=== PATIENT | female | born 2000 | race Caucasian/White ===

== ENCOUNTER 2019-02-27 19:20 | Inpatient (IN) | payer OTHER ==
[2019-02-27] MEDS ORDERED: ACETAMINOPHEN 325 MG TABLET PO ONE (19:50)
--- NOTE | 2019-02-27 19:53 | ER Document Report ---
ED Medical Screen (RME) - General Chief Complaint: Abdominal Pain Stated Complaint: ABDOMINAL PAIN,PAINFUL URINATION,FAINTED Time Seen by Provider: 02/27/19 19:45 Mode of Arrival: Ambulatory Information source: Patient Notes: Patient presents emergency department with complaints of abdominal pain mainly around her umbilicus. Patient reports she woke up this morning with a little bit of abdominal pain went to the restroom when she voided she had pain burning which made her become very pale clammy she fainted and when she woke up she had blurred vision. She is unsure if she hit her head. She complains of abdominal pain still. Reports she is been able to drink and eat a brownie today. Reports she took Motrin at 3. I have greeted and performed a rapid initial assessment of this patient. A comprehensive ED assessment and evaluation of the patient, analysis of test results and completion of the medical decision making process will be conducted by additional ED providers. Dictation of this chart was performed using voice recognition software; therefore, there may be some unintended grammatical errors. TRAVEL OUTSIDE OF THE [place] IN LAST 30 DAYS: No - Related Data Allergies/Adverse Reactions: No Known Allergies Allergy (Unverified 02/27/19 19:23) Physical Exam - Vital signs Vitals: Temp Pulse Resp BP Pulse Ox 99.0 F 90 16 142/85 H 100 02/27/19 19:33 02/27/19 19:33 02/27/19 19:33 02/27/19 19:33 02/27/19 19:33 Course - Vital Signs Vital signs: Temp Pulse Resp BP Pulse Ox 99.0 F 90 16 142/85 H 100 02/27/19 19:33 02/27/19 19:33 02/27/19 19:33 02/27/19 19:33 02/27/19 19:33
[2019-02-27 20:39] LABS: ABSOLUTE LYMPHOCYTES (AUTO) 1.6 10^3/uL (0.5-4.7); ABSOLUTE MONOCYTES (AUTO) 0.9 10^3/uL (0.1-1.4); ABSOLUTE NEUT (AUTO) 13.5 10^3/uL (1.7-8.2); BASOPHILS % (AUTO) 0.3 % (0-2); HEMATOCRIT 35.4 % (36.0-47.0); HEMOGLOBIN 11.6 g/dL (12.0-15.5); MEAN CORPUSCULAR HEMOGLOBIN 27.3 pg (27.0-33.4); MEAN CORPUSCULAR HGB CONC 32.8 g/dL (32.0-36.0); MEAN CORPUSCULAR VOLUME 83 fl (80-97); MONOCYTES % (AUTO) 5.7 % (3-13); PLATELET COUNT 287 10^3/uL (150-450); RED BLOOD COUNT 4.25 10^6/uL (3.72-5.28); RED CELL DISTRIBUTION WIDTH 18.1 % (11.5-14.0); TOTAL CELLS COUNTED % (AUTO) 100 %; WHITE BLOOD COUNT 16.1 10^3/uL (4.0-10.5)
[2019-02-27 20:57] LABS: ALANINE AMINOTRANSFERASE 29 U/L (9-52); ALBUMIN 4.2 g/dL (3.5-5.0); ALKALINE PHOSPHATASE 58 U/L (38-126); ANION GAP 13 (5-19); ASPARTATE AMINO TRANSFERASE 17 U/L (14-36); BILIRUBIN,DIRECT 0.1 mg/dL (0.0-0.4); BILIRUBIN,TOTAL 0.6 mg/dL (0.2-1.3); BLOOD UREA NITROGEN 8 mg/dL (7-20); CALCIUM 9.6 mg/dL (8.4-10.2); CARBON DIOXIDE 25 mmol/L (22-30); CHLORIDE 101 mmol/L (98-107); GLUCOSE 131 mg/dL (75-110); POTASSIUM 4.2 mmol/L (3.6-5.0); SODIUM 138.5 mmol/L (137-145); TOTAL PROTEIN 6.8 g/dL (6.3-8.2)
[2019-02-27 21:01] LABS: APPEARANCE,URINE CLEAR; BILIRUBIN,URINE NEGATIVE (NEGATIVE); COLOR,URINE STRAW; GLUCOSE, URINE NEGATIVE (NEGATIVE); KETONES,URINE NEGATIVE (NEGATIVE); LEUKOCYTE ESTERASE,URINE NEGATIVE (NEGATIVE); NITRITE,URINE NEGATIVE (NEGATIVE); PROTEIN,URINE NEGATIVE (NEGATIVE); URINE SPECIFIC GRAVITY 1.005; UROBILINOGEN,URINE NEGATIVE mg/dL (<2.0)
--- NOTE | 2019-02-27 21:54 | ER Document Report ---
ED General - General Chief Complaint: Abdominal Pain Stated Complaint: ABDOMINAL PAIN,PAINFUL URINATION,FAINTED Time Seen by Provider: 02/27/19 19:45 Mode of Arrival: Ambulatory Notes: Patient is a 18-year-old female who presents the emergency department with a chief complaint of lower abdominal pain. She states that her pain is mainly midline. Describes her pain as a sharp pain. She also states that she has stin ging when she urinates. Earlier today she fainted and states that she had some cold sweats. States that she has had some blurry vision. She TRAVEL OUTSIDE OF THE [place] IN LAST 30 DAYS: No - Related Data Allergies/Adverse Reactions: No Known Allergies Allergy (Unverified 02/27/19 19:23) Past Medical History - General Information source: Patient - Social History Smoking Status: Never Smoker Chew tobacco use (# tins/day): No Frequency of alcohol use: None Drug Abuse: None Family History: Reviewed & Not Pertinent Patient has suicidal ideation: No Patient has homicidal ideation: No Renal/ Medical History: Denies: Hx Peritoneal Dialysis Review of Systems - Review of Systems Notes: REVIEW OF SYSTEMS: CONSTITUTIONAL : Denies recent illness. Denies recent unintentional weight loss. Denies fever, chills, or sweats. EENT: Denies eye, ear, throat, or mouth pain, discharge, or symptoms. Denies nasal or sinus congestion. CARDIOVASCULAR: Denies chest pain. RESPIRATORY: Denies shortness of breath, cough, congestion, difficulty breathing, or wheezing. GASTROINTESTINAL: See HPI GENITOURINARY: Denies difficulty urinating, burning, blood in urine, urgency or frequency. FEMALE GENITOURINARY: See HPI MUSCULOSKELETAL: Denies neck and back pain. Denies joint pain or swelling. SKIN: Denies rash, itchiness, or lesions HEMATOLOGIC : Denies easy bruising or bleeding. LYMPHATIC: Denies swollen, painful, enlarged glands. NEUROLOGICAL: Denies no numbness or tingling denies weakness. Denies headache. Denies altered mental status. Denies alteration in speech. PSYCHIATRIC: Denies stress, anxiety, alteration in sleep patterns, or depression. All other systems reviewed and negative. Physical Exam - Vital signs Vitals: Temp Pulse Resp BP Pulse Ox 99.0 F 90 16 142/85 H 100 02/27/19 19:33 02/27/19 19:33 02/27/19 19:33 02/27/19 19:33 02/27/19 19:33 - Notes Notes: PHYSICAL EXAMINATION: GENERAL: Appears well, healthy, well-nourished, no acute distress. HEAD: Normocephalic, atraumatic. EYES: PERRL, conjunctiva normal, all extraocular movements intact, sclera nonicteric ENT: Moist mucous membranes. NECK: Supple, no noticeable swelling, redness, rash. Normal range of motion. LUNGS: Equal breath sounds bilaterally and clear to auscultation. No wheezes rales or rhonchi. CARDIOVASCULAR: S1-S2, regular rate, regular rhythm. Radial pulses 2+, normal. ABDOMEN: Normoactive bowel sounds. Very tender mid lower abdomen. EXTREMITIES: Normal strength and range of motion, no pitting or edema. No cyanosis. NEUROLOGICAL: Moves all extremities upon command. Strength 5/5 in all extremities. PSYCH: Normal mood, normal affect. SKIN: Warm, dry. No rash, lesions, ulcerations noted. Normal skin turgor. BANK COURIER: Cervical motion tenderness noted. White and purulent drainage noted on exam. Course - Re-evaluation Re-evalutation: 02/27/19 23:30 Patient has mid low abdomen tenderness. A transvaginal ultrasound will be ordered. She also be tested for gonorrhea and chlamydia. A pelvic exam will be done. 02/27/2019 23:59 Patient has 3+ epithelial cells and 4+ bacteria noted on her wet mount. She will be given 1 g of ceftriaxone IV here in the emergency department. 02/28/19 01:23 Patient is having worsening abdominal pain. She will be sent for a CT of the abdomen pelvis, as her abdomen is more tender. She has guarding noted. 02/28/19 02:[address] [facility] and spoke to her personally and there is free fluid and she is ruling out appendicitis and a bowel perforation. She states that it may be from mild left ruptured ovarian cyst. I will call Dr. Gary, the [employer] ANALYST on-call. 02/28/19 02:[address] Gary and updated him on the free fluid that was in the patient's abdomen and he states to call him back with the ultrasound results. 02/28/19 04:13 The patient's ultrasound shows a 7.2 cm heterogeneous complex collection lesion without significant vascularity of the left broad ligament. I discussed these findings with Dr. Gary, the [employer] ANALYST on-call. He states that he will admit her for PID and IV antibiotic treatment. Patient states that she is still in pain. She will receive another dose of fentanyl. - Vital Signs Vital signs: Temp Pulse Resp BP Pulse Ox 98 F 68 16 141/76 H 98 02/28/19 07:03 02/28/19 07:03 02/28/19 07:03 02/28/19 07:03 02/28/19 07:03 - Laboratory Result Diagrams: 02/28/19 03:18 02/27/19 20:08 Laboratory results interpreted by me: 02/27/19 02/27/19 02/28/19 20:08 20:08 03:18 WBC 16.1 H 11.0 H Hgb 11.6 L 11.0 L Hct 35.4 L 33.5 L RDW 18.1 H 17.5 H Seg Neutrophils % 84.0 H Lymphocytes % 10.0 L Absolute Neutrophils 13.5 H 8.4 H Glucose 131 H Discharge - Discharge Clinical Impression: Pelvic inflammatory disease Condition: Fair Disposition: ADMITTED INPATIENT Admitting Provider: [facility] Unit Admitted: Medical Floor
[2019-02-27] MEDS ORDERED: KETOROLAC TROMETHAMINE 60 MG/2 ML SDV IM ONE (21:55)
[2019-02-27] MEDS ORDERED: MORPHINE SULFATE 10 MG/ML INJ IV ONE (23:35)
[2019-02-27 23:55] LABS: BACTERIA (WET MOUNT) 4+ BACTERIA SEEN; EPITHELIALS (WET MOUNT) 3+ EPITHELIALS SEEN; RBCS (WET MOUNT) NO RBCS SEEN; T.VAGINALIS (WET MOUNT) NO TRICHOMONAS SEEN; WBCS (WET MOUNT) 1+ WBCS SEEN; YEAST (WET MOUNT) NO YEAST SEEN
[2019-02-28] MEDS ORDERED: CEFTRIAXONE 1 GM/D5W RTU 1 GM/50 ML RTUPB IV ONE
[2019-02-28] MEDS ORDERED: MORPHINE SULFATE 10 MG/ML INJ IV ONE (00:54)
[2019-02-28 01:19] LABS: CHLAM PCR NOT DETECTED (NOT DETECT); GON PCR NOT DETECTED (NOT DETECT)
[2019-02-28] MEDS ORDERED: FENTANYL CITRATE INJ/PF 100 MCG/2 ML AMPUL IV ONE ×2 (01:24→04:10)
--- NOTE | 2019-02-28 02:51 | RADIOLOGY REPORT (SQ) ---
EXAM: CT abdomen and pelvis with IV contrast CLINICAL DATA: 18-year-old female with worsening abdominal pain TECHNICAL DATA: Axial CT imaging of the abdomen and pelvis was performed following the administration of intravenous contrast.. Sagittal and coronal reconstructed images were then performed. The CT study is performed according to ALARA (as low as reasonably achievable) or ALARA/IMAGE GENTLY, with automatic adjustment of mA and/or kV according to patient size. Performed on: 02/28/2019 at 1:28 AM. Comparison: None FINDINGS: Lung bases: The lung bases are clear. Liver:The liver is normal in size and configuration. No focal hepatic abnormalities are identified. Liver attenuation is within normal limits. Spleen:The spleen is normal is size, configuration and attenuation. Gallbladder and bile duct: The gallbladder is well distended and unremarkable. There is no biliary ductal dilatation. Pancreas: The pancreas is grossly normal in size and configuration. Adrenal Glands:The adrenal glands are normal in size and configuration. Kidneys:The kidneys are normal in size and configuration. There is no evidence of hydronephrosis. There is no evidence of nephrolithiasis. No definite solid or cystic renal mass lesions are identified. Stomach:The stomach is grossly normal. There is no definite hiatal hernia. Bowel:The bowel gas pattern is non specific and non obstructive. Appendix: The appendix is normal. Free air:There is no evidence of free air. Free fluid: There is a [id number] amount of low-density ascites of uncertain etiology. Findings could potentially be due to rupture of an ovarian cyst. Hounsfield measurements average approximately 35 suggesting possible infectious etiology. Vasculature: The aorta is normal in caliber and contour. The inferior vena cava is grossly unremarkable. Lymphadenopathy: No pathologic lymphadenopathy is identified. Bladder: The bladder is well distended and smooth in contour. Reproductive: The uterus is grossly within normal limits. Bones: No acute osseous abnormalities are identified. Soft tissues: No focal soft tissue abnormalities are identified. IMPRESSION: 1. Small to moderate amount of ascites with an average Hounsfield measurement of approximately 35. Although findings could be related to ruptured ovarian cyst, other etiologies are not excluded. Bowel perforation is a consideration although there is no evidence of free intraperitoneal air. These findings were discussed with the nurse practitioner on 02/28/2019 at approximately 1:40 AM central time. 2. Otherwise, unremarkable CT scan of the abdomen and pelvis.
[2019-02-28 03:28] LABS: ABSOLUTE BASOPHILS # (AUTO) 0.1 10^3/uL (0.0-0.2); ABSOLUTE LYMPHOCYTES (AUTO) 1.7 10^3/uL (0.5-4.7); ABSOLUTE MONOCYTES (AUTO) 0.8 10^3/uL (0.1-1.4); ABSOLUTE NEUT (AUTO) 8.4 10^3/uL (1.7-8.2); BASOPHILS % (AUTO) 0.6 % (0-2); EOSINOPHILS % (AUTO) 0.2 % (0-6); HEMATOCRIT 33.5 % (36.0-47.0); LYMPHOCYTES % (AUTO) 15.7 % (13-45); MEAN CORPUSCULAR HEMOGLOBIN 27.6 pg (27.0-33.4); MEAN CORPUSCULAR VOLUME 84 fl (80-97); MONOCYTES % (AUTO) 6.9 % (3-13); PLATELET COUNT 235 10^3/uL (150-450); RED CELL DISTRIBUTION WIDTH 17.5 % (11.5-14.0); SEGMENTED NEUTROPHILS % (AUTO) 76.6 % (42-78); TOTAL CELLS COUNTED % (AUTO) 100 %
--- NOTE | 2019-02-28 03:54 | RADIOLOGY REPORT (SQ) ---
EXAM DESCRIPTION: US TRANSVAGINAL COMPLETED DATE/TME: 02/27/2019 22:01 CLINICAL HISTORY: 18 years Female, pelvic pain Comparison: CT, concurrent. Technique: Transvaginal. LIMITATIONS: Unable to empty bladder. FINDINGS: 5.8 x 2.4 x 7.2 cm heterogeneous complex collection-lesion without significant vascularity at the expected left broad ligament. 9 cm uterus, 1.5 cm thick endometrial stripe, 2.9 cm right ovary, 5.4 cm left ovary, 2.1 cm complex possible hemorrhagic cyst of the left ovary appear otherwise normal size, shape, echotexture, and vascularity. IMPRESSION: 7.2 cm heterogeneous complex collection-lesion without significant vascularity at the expected left broad ligament. Differential etiologies include phlegmon-pyosalpinx (PID), hemoatoma, endometrioma, and neoplasm.
[2019-02-28] MEDS ORDERED: PROMETHAZINE HCL INJ 25 MG/1 ML VIAL ONE (07:14)
[2019-02-28] MEDS ORDERED: OXYCODONE-ACETAMINOPHEN 5-325 MG TABLET PO PRN ×2 (08:26→08:42)
[2019-02-28] MEDS ORDERED: PROMETHAZINE HCL INJ 25 MG/1 ML VIAL IV PRN (08:27)
[2019-02-28] MEDS ORDERED: ONDANSETRON HCL INJ/PF 4 MG/2 ML SDV IV PRN (08:28)
[2019-02-28] MEDS: CEFTRIAXONE SODIUM 1,000 MG in DEXTROSE 5%-WATER 50 ML IV SCH ×2 (10:29→23:09)
[2019-02-28] MEDS: DEXTROSE 5%-LACTATED RINGERS 1,000 ML IV PRN ×2 (10:30→17:49)
[2019-02-28 11:15] LABS: CARCINOEMBRYONIC ANTIGEN 1.6 ng/mL (<3.0)
[2019-02-28] MEDS: IBUPROFEN 800 MG TABLET PO SCH ×2 (13:11→21:56)
[2019-02-28] MEDS: CLINDAMYCIN 900 MG/D5W RTU 900 MG/50 ML RTUPB IV SCH ×2 (13:11→21:57)
--- NOTE | 2019-02-28 15:09 | PDOC H&P ---
History of Present Illness Admission Date/PCP: 02/28/19 05:48 Patient complains of: abdominal pain and bloating, difficulty urinating History of Present Illness: KENNY DONG is a 18 year old female with reported abdominal pain for a couple of days. She reports syncope last evening and some right shoulder pain since that time. She also reports that since yesterday she has been having difficulty voiding. Denies dysuria/frequency. She reports feeling abdominal bloating since last night and midline pelvic pain. Denies fevers, but reports having the sweats. She has never had anything like this before. LMP was 01/29/2019. She reports she ahs pretty regular menses. She denies any other concerns at this time. Past Medical History LMP: 01/29/2019 Gynecological Infection: No Psychiatric Medical History: Denies: Depression Past Surgical History Past Surgical History: Reports: None Social History Information Source: Patient Lives with: Family Smoking Status: Never Smoker Frequency of Alcohol Use: None Hx Recreational Drug Use: No Drugs: None Hx Prescription Drug Abuse: No - Advance Directive Resuscitation Status: Full Code Family History Family History: Reviewed & Not Pertinent Parental Family History Reviewed: No Children Family History Reviewed: NA Sibling(s) Family History Reviewed.: NA Medication/Allergy Home Medications: No Home Medications 02/28/19 Allergies/Adverse Reactions: No Known Allergies Allergy (Unverified 02/27/19 19:23) Review of Systems Constitutional: PRESENT: as per HPI, chills, fatigue, night sweats. ABSENT: fever(s), weight gain, weight loss Gastrointestinal: PRESENT: abdominal pain, bloating. ABSENT: constipation, diarrhea, hematemesis, hematochezia, nausea, vomiting Genitourinary: PRESENT: difficulty urinating. ABSENT: dysuria, hematuria, nocturia Musculoskeletal: ABSENT: joint swelling Integumentary: ABSENT: rash, wounds Neurological: ABSENT: abnormal gait, abnormal speech, confusion, dizziness, focal weakness, syncope Psychiatric: ABSENT: anxiety, depression, homidical ideation, suicidal ideation Endocrine: ABSENT: cold intolerance, heat intolerance, polydipsia, polyuria Physical Exam - Physical Exam Vital Signs: Temp Pulse Resp BP Pulse Ox 98.4 F 72 18 128/61 H 99 02/28/19 11:03 02/28/19 11:03 02/28/19 11:03 02/28/19 11:03 02/28/19 11:03 Intake & Output 02/27/19 02/28/19 03/01/19 06:59 06:59 06:59 Intake Total 50 Balance 50 Weight 58.1 kg General appearance: PRESENT: no acute distress, well-developed, well-nourished Head exam: PRESENT: atraumatic, normocephalic Respiratory exam: PRESENT: clear to auscultation enrique, symmetrical, unlabored Cardiovascular exam: PRESENT: RRR. ABSENT: diastolic murmur, rubs, systolic murmur Vascular exam: PRESENT: normal capillary refill GI/Abdominal exam: PRESENT: ascites Rectal exam: PRESENT: deferred Extremities exam: PRESENT: full ROM. ABSENT: calf tenderness, clubbing, pedal edema Neurological exam: PRESENT: alert, awake, oriented to person, oriented to place, oriented to time, oriented to situation, CN II-XII grossly intact. ABSENT: motor sensory deficit Psychiatric exam: PRESENT: appropriate affect, normal mood. ABSENT: homicidal ideation, suicidal ideation Skin exam: PRESENT: dry, intact, warm. ABSENT: cyanosis, rash Result Laboratory Results: 02/28/19 03:18 02/27/19 20:08 02/27/19 02/27/19 02/27/19 20:08 20:08 20:10 WBC 16.1 H RBC 4.25 Hgb 11.6 L Hct 35.4 L MCV 83 MCH 27.3 MCHC 32.8 RDW 18.1 H Plt Count 287 Seg Neutrophils % 84.0 H Lymphocytes % 10.0 L Monocytes % 5.7 Eosinophils % 0.0 Basophils % 0.3 Absolute Neutrophils 13.5 H Absolute Lymphocytes 1.6 Absolute Monocytes 0.9 Absolute Eosinophils 0.0 Absolute Basophils 0.0 Sodium 138.5 Potassium 4.2 Chloride 101 Carbon Dioxide 25 Anion Gap 13 BUN 8 Creatinine 0.65 Est GFR ( Amer) > 60 Est GFR (Non-Af Amer) > 60 Glucose 131 H Calcium 9.6 Total Bilirubin 0.6 AST 17 ALT 29 Alkaline Phosphatase 58 Total Protein 6.8 Albumin 4.2 Urine Color STRAW Urine Appearance CLEAR Urine pH 6.0 Ur Specific [place] 1.005 Urine Protein NEGATIVE Urine Glucose (UA) NEGATIVE Urine Ketones NEGATIVE Urine Blood NEGATIVE Urine Nitrite NEGATIVE Ur Leukocyte Esterase NEGATIVE Urine WBC (Auto) 1 Urine RBC (Auto) 0 02/28/19 03:18 WBC 11.0 H RBC 4.00 Hgb 11.0 L Hct 33.5 L MCV 84 MCH 27.6 MCHC 33.0 RDW 17.5 H Plt Count 235 Seg Neutrophils % 76.6 Lymphocytes % 15.7 Monocytes % 6.9 Eosinophils % 0.2 Basophils % 0.6 Absolute Neutrophils 8.4 H Absolute Lymphocytes 1.7 Absolute Monocytes 0.8 Absolute Eosinophils 0.0 Absolute Basophils 0.1 Sodium Potassium Chloride Carbon Dioxide Anion Gap BUN Creatinine Est GFR ( Amer) Est GFR (Non-Af Amer) Glucose Calcium Total Bilirubin AST ALT Alkaline Phosphatase Total Protein Albumin Urine Color Urine Appearance Urine pH Ur Specific [place] Urine Protein Urine Glucose (UA) Urine Ketones Urine Blood Urine Nitrite Ur Leukocyte Esterase Urine WBC (Auto) Urine RBC (Auto) Impressions: Transvaginal US 02/27/19 22:01 IMPRESSION: 7.2 cm heterogeneous complex collection-lesion without significant vascularity at the expected left broad ligament. Differential etiologies include phlegmon-pyosalpinx (PID), hemoatoma, endometrioma, and neoplasm. Abdomen/Pelvis CT 02/28/19 01:23 IMPRESSION: 1. Small to moderate amount of ascites with an average Hounsfield measurement of approximately 35. Although findings could be related to ruptured ovarian cyst, other etiologies are not excluded. Bowel perforation is a consideration although there is no evidence of free intraperitoneal air. These findings were discussed with the nurse practitioner on 02/28/2019 at approximately 1:40 AM central time. 2. Otherwise, unremarkable CT scan of the abdomen and pelvis. Status: Imported from PACS Assessment & Plan - Diagnosis (1) Pelvic inflammatory disease Is this a current diagnosis for this admission?: Yes Plan: GC/CT negative, Trich negative. Reviewed that ascites noted and need for drainage with studies. Will continue to treat for PID at this time. Repeat labs in am. (2) Ascites Qualifiers: Ascites type: other type Qualified Code(s): R18.8 - Other ascites Is this a current diagnosis for this admission?: Yes Plan: Tumor markers negative, Inhibin is still pending. Reviewed studies with radiology and US guided drainage of Ascites - but no good window so will delay until in the am and radioloyg will perform under CT guidance. Gram stain and culture ordered of fluid. Cytology ordered of fluid. (3) Urinary retention Is this a current diagnosis for this admission?: Yes Plan: Bladder scan with greater than 500ml in bladder. Jeter to gravity placed with staggered drainage to prevent symptoms. Will leave jeter to gravity in place overnight to maintain bladder emptying in order to complete drainage procedure in am. - Time Time Spent: 50 to 70 Minutes Critical Time spent with patient: Less than 15 minutes Medications reviewed and adjusted accordingly: Yes Anticipated discharge: Home Within: within 48 hours - Inpatient Certification Based on my medical assessment, after consideration of the patient's comorbidities, presenting symptoms, or acuity I expect that the services needed warrant INPATIENT care.: Yes I certify that my determination is in accordance with my understanding of Medicare's requirements for reasonable and necessary INPATIENT services [42 CFR 412.3e].: Yes Medical Necessity: Need For IV Fluids, Need for IV Antibiotics Post Hospital Care: D/C Plaster Foreman Documentation
[2019-02-28 15:39] LABS: APPEARANCE,URINE CLEAR; BILIRUBIN,URINE NEGATIVE (NEGATIVE); COLOR,URINE YELLOW; GLUCOSE, URINE NEGATIVE (NEGATIVE); KETONES,URINE NEGATIVE (NEGATIVE); LEUKOCYTE ESTERASE,URINE NEGATIVE (NEGATIVE); NITRITE,URINE NEGATIVE (NEGATIVE); PROTEIN,URINE NEGATIVE (NEGATIVE); URINE SPECIFIC GRAVITY 1.011; UROBILINOGEN,URINE NEGATIVE mg/dL (<2.0)
--- NOTE | 2019-02-28 16:31 | RADIOLOGY REPORT (SQ) ---
EXAM DESCRIPTION: U/S ABDOMEN LIMITED W/O DOP COMPLETED DATE/TIME: 02/28/2019 4:21 pm REASON FOR STUDY: ascites of uknown origin COMPARISON: None. TECHNIQUE: Limited Static and real time corral scale imaging performed of the 4 abdominal quadrants an d the midline. LIMITATIONS: None. FINDINGS: ASCITES: Small amount of ascites. No safe window for paracentesis under ultrasound guidan ce. OTHER: No other significant finding. IMPRESSION: No safe window for ultrasound guidance. Patient will be scheduled for CT guided diagnos tic paracentesis. TECHNICAL DOCUMENTATION: JOB ID: [id number] [employer]- All Rights Reserved Reading location - IP/workstation name: [email or web address]
[2019-03-01] MEDS: IBUPROFEN 800 MG TABLET PO SCH ×3 (06:09→22:40)
[2019-03-01] MEDS: DEXTROSE 5%-LACTATED RINGERS 1,000 ML IV PRN ×2 (06:09→16:29)
[2019-03-01] MEDS: CLINDAMYCIN 900 MG/D5W RTU 900 MG/50 ML RTUPB IV SCH ×3 (06:09→22:40)
[2019-03-01] MEDS: CEFTRIAXONE SODIUM 1,000 MG in DEXTROSE 5%-WATER 50 ML IV SCH ×2 (09:31→23:54)
--- NOTE | 2019-03-01 13:42 | RADIOLOGY REPORT (SQ) ---
EXAM DESCRIPTION: CT ABDOMEN NO ORAL OR IV COMPLETED DATE/TIME: 03/01/2019 1:31 pm REASON FOR STUDY: ASCITES COMPARISON: CT and ultrasound dated 02/28/2019. TECHNIQUE: Limited axial images of the right side of the abdomen were acquired without contrast as s cout imaging for planned paracentesis. All images stored on PACS. All CT scanners at this facility use dose modulation, iterative reconstruction, and/or weight based d osing when appropriate to reduce radiation dose to as low as reasonably achievable (ALARA). [facility]: Dose Right [facility]: CareDose [facility]: Dose Right [facility]: Teradose 4D [facility]: MedDay RADIATION DOSE: CT Rad equipment meets quality standard of care and radiation dose reduction techniq ues were employed. CTDIvol: 5.9 mGy. DLP: 169 mGy-cm.mGy. LIMITATIONS: None. FINDINGS: The previously seen free fluid in the right subhepatic space and right pericolic gutter is no longer present. Visualized organs and bowel are unremarkable. IMPRESSION: PREVIOUSLY SEEN FREE FLUID ON THE RIGHT SIDE OF THE ABDOMEN IS NO LONGER PRESENT. THE PLANNED PARACENTESIS WAS CANCELED. TECHNICAL DOCUMENTATION: JOB ID: [id number] Quality ID # [id number]: Final reports with documentation of one or more dose reduction techniques (e.g., Au tomated exposure control, adjustment of the mA and/or kV according to patient size, use of iterative reconstruction technique) 2010 [employer]- All Rights Reserved Reading location - IP/workstation name: [email or web address]
--- NOTE | 2019-03-01 17:13 | PDOC PROGRESS REPORT ---
Subjective Progress Note for:: 03/01/19 Subjective:: pt went for CT guided paracentesis today and ascites/collection is resolved. Pt returnd to her patient room and began c/o headache and stomach pain. Denies nausea or vomiting at this time but pt and family indicate that pt's stomach pain worsened after eating. Fever noted to be over 101.9 x 3 checks since headache started. Reason For Visit: PELVIC MASS WITH INFLAMMATION Physical Exam - Physical Exam Vital Signs: Temp Pulse Resp BP Pulse Ox 103.0 F H 102 H 16 143/83 H 100 03/01/19 15:11 03/01/19 15:11 03/01/19 15:11 03/01/19 15:11 03/01/19 15:11 Intake & Output 02/28/19 03/01/19 03/02/19 06:59 06:59 06:59 Intake Total 50 3160 1370 Output Total 1790 1800 Balance 50 1370 -430 Weight 58.1 kg 58.7 kg General appearance: PRESENT: no acute distress, cooperative, mild distress, thin Head exam: PRESENT: atraumatic, normocephalic Neck exam: PRESENT: full ROM, meningismus GI/Abdominal exam: PRESENT: soft, tenderness - mildly tender on the right Neurological exam: PRESENT: alert, awake, oriented to person, oriented to place, CN II-XII grossly intact Additional comments: no CVA tenderness with palpation. No further menigeal signs other than with neck flexion. (feels improved with neck extension) Denies photophobia Result Laboratory Results: 02/28/19 03:18 02/27/19 20:08 Impressions: Transvaginal US 02/27/19 22:01 IMPRESSION: 7.2 cm heterogeneous complex collection-lesion without significant vascularity at the expected left broad ligament. Differential etiologies include phlegmon-pyosalpinx (PID), hemoatoma, endometrioma, and neoplasm. Abdomen/Pelvis CT 02/28/19 01:23 IMPRESSION: 1. Small to moderate amount of ascites with an average Hounsfield measurement of approximately 35. Although findings could be related to ruptured ovarian cyst, other etiologies are not excluded. Bowel perforation is a consideration although there is no evidence of free intraperitoneal air. These findings were discussed with the nurse practitioner on 02/28/2019 at approximately 1:40 AM central time. 2. Otherwise, unremarkable CT scan of the abdomen and pelvis. Abdomen Ultrasound 02/28/19 15:05 IMPRESSION: No safe window for ultrasound guidance. Patient will be scheduled for CT guided diagnostic paracentesis. Abdomen CT 03/01/19 00:00 IMPRESSION: PREVIOUSLY SEEN FREE FLUID ON THE RIGHT SIDE OF THE ABDOMEN IS NO LONGER PRESENT. THE PLANNED PARACENTESIS WAS CANCELED. Assessment & Plan - Diagnosis (2) Ascites Qualifiers: Ascites type: other type Qualified Code(s): R18.8 - Other ascites Is this a current diagnosis for this admission?: Yes (3) Pelvic inflammatory disease Is this a current diagnosis for this admission?: Yes (4) Urinary retention Is this a current diagnosis for this admission?: Yes - Time Time Spent with patient: 15-24 minutes Anticipated discharge: Home Within: within 24 hours - Inpatient Certification Based on my medical assessment, after consideration of the patient's comorbidities, presenting symptoms, or acuity I expect that the services needed warrant INPATIENT care.: Yes I certify that my determination is in accordance with my understanding of Medicare's requirements for reasonable and necessary INPATIENT services [42 CFR 412.3e].: Yes Medical Necessity: Need For IV Fluids, Need for Pain Control, Need for IV Antibiotics - Plan Summary Plan Summary: will check cbc and blood cultures. will d/c jeter and await voiding now that adequate bladder rest. (explained to pt and family that we can replace jeter if unable to void in 6 hours) Hospitalist consulted to rule out meningitis although this is unlikely and to evaluate fever. Feel that fever is likely inflammatory response and should resolve however, welcome hospitalist input for other possible etiologies. Plan discharge when able to maintain afebrile state for greater than 24 hours.
[2019-03-01 17:33] LABS: APPEARANCE,URINE CLEAR; BILIRUBIN,URINE NEGATIVE (NEGATIVE); COLOR,URINE STRAW; GLUCOSE, URINE NEGATIVE (NEGATIVE); KETONES,URINE NEGATIVE (NEGATIVE); LEUKOCYTE ESTERASE,URINE NEGATIVE (NEGATIVE); NITRITE,URINE NEGATIVE (NEGATIVE); PROTEIN,URINE NEGATIVE (NEGATIVE); URINE SPECIFIC GRAVITY 1.005; UROBILINOGEN,URINE NEGATIVE mg/dL (<2.0)
[2019-03-01 18:37] LABS: ABSOLUTE LYMPHOCYTES (AUTO) 0.6 10^3/uL (0.5-4.7); ABSOLUTE MONOCYTES (AUTO) 0.4 10^3/uL (0.1-1.4); ABSOLUTE NEUT (AUTO) 4.9 10^3/uL (1.7-8.2); BASOPHILS % (AUTO) 0.7 % (0-2); HEMATOCRIT 34.2 % (36.0-47.0); HEMOGLOBIN 11.4 g/dL (12.0-15.5); LYMPHOCYTES % (AUTO) 9.4 % (13-45); MEAN CORPUSCULAR HEMOGLOBIN 27.7 pg (27.0-33.4); MEAN CORPUSCULAR HGB CONC 33.2 g/dL (32.0-36.0); MEAN CORPUSCULAR VOLUME 84 fl (80-97); MONOCYTES % (AUTO) 6.4 % (3-13); PLATELET COUNT 202 10^3/uL (150-450); RED CELL DISTRIBUTION WIDTH 17.4 % (11.5-14.0); SEGMENTED NEUTROPHILS % (AUTO) 83.5 % (42-78); TOTAL CELLS COUNTED % (AUTO) 100 %; WHITE BLOOD COUNT 5.9 10^3/uL (4.0-10.5)
--- NOTE | 2019-03-01 19:40 | PDOC CONSULTATION ---
Consultation Consult Date: 03/01/19 Attending physician:: MONICA DEGROOT Provider Consulted: NIRU ELDER Consult reason:: fever and headache History of Present Illness Admission Date/PCP: 02/28/19 05:48 History of Present Illness: KENNY DONG is a 18 year old female who was admitted due to abdominal pain and was diagnosed with PID and left broad ligament abscess. she had small free intra-abdominal fluid that is now resolved. she is on Ceftriaxone and cli ndamycin. she developed mild to moderate headache and high fever today. she doesn't have photophobia, no nuchal rigidity. she vomited once yesterday bit not today. she has shoulder pain but it was from recent fall. she is actually improving. headache is better. Past Medical History Psychiatric Medical History: Denies: Depression Past Surgical History Past Surgical History: Reports: None Social History Lives with: Family Smoking Status: Never Smoker Frequency of Alcohol Use: None Hx Recreational Drug Use: No Drugs: None Hx Prescription Drug Abuse: No - Advance Directive Resuscitation Status: Full Code Family History Family History: Reviewed & Not Pertinent Parental Family History Reviewed: Yes Children Family History Reviewed: Yes Sibling(s) Family History Reviewed.: Yes Medication/Allergy Home Medications: No Home Medications 02/28/19 Allergies/Adverse Reactions: No Known Allergies Allergy (Unverified 02/27/19 19:23) Review of Systems All systems: reviewed and no additional remarkable complaints except as stated Physical Exam Vital Signs: Temp Pulse Resp BP Pulse Ox 103.0 F H 102 H 16 143/83 H 100 03/01/19 15:11 03/01/19 15:11 03/01/19 15:11 03/01/19 15:11 03/01/19 15:11 Intake & Output 02/28/19 03/01/19 03/02/19 06:59 06:59 06:59 Intake Total 50 3160 1370 Output Total 1790 1800 Balance 50 1370 -430 Weight 128 lb 1.417 oz 129 lb 6.581 oz Exam: Patient is no acute distress Alert oriented to time place person No anxiety or depression Head: atraumatic normocephalic Pupils: are equal reactive Neck: is supple and trachea is central no lymphadenopathy No pharyngeal erythema or exudates Heart: Regular rate and rhythm Lungs: clear no distress Abdomen: nontender nondistended Neurological exam: unremarkable. no photophobia. no nuchal rigidity. Musculoskeletal: No joint swelling or effusion chronic lower back pain and tenderness No suicidal or homicidal ideation Results Laboratory Results: 03/01/19 18:21 02/27/19 20:08 03/01/19 03/01/19 17:10 18:21 WBC 5.9 RBC 4.10 Hgb 11.4 L Hct 34.2 L MCV 84 MCH 27.7 MCHC 33.2 RDW 17.4 H Plt Count 202 Seg Neutrophils % 83.5 H Lymphocytes % 9.4 L Monocytes % 6.4 Eosinophils % 0.0 Basophils % 0.7 Absolute Neutrophils 4.9 Absolute Lymphocytes 0.6 Absolute Monocytes 0.4 Absolute Eosinophils 0.0 Absolute Basophils 0.0 Urine Color STRAW Urine Appearance CLEAR Urine pH 9.0 Ur Specific [place] 1.005 Urine Protein NEGATIVE Urine Glucose (UA) NEGATIVE Urine Ketones NEGATIVE Urine Blood NEGATIVE Urine Nitrite NEGATIVE Ur Leukocyte Esterase NEGATIVE Urine RBC (Auto) 1 Impressions: Transvaginal US 02/27/19 22:01 IMPRESSION: 7.2 cm heterogeneous complex collection-lesion without significant vascularity at the expected left broad ligament. Differential etiologies include phlegmon-pyosalpinx (PID), hemoatoma, endometrioma, and neoplasm. Abdomen/Pelvis CT 02/28/19 01:23 IMPRESSION: 1. Small to moderate amount of ascites with an average Hounsfield measurement of approximately 35. Although findings could be related to ruptured ovarian cyst, other etiologies are not excluded. Bowel perforation is a consideration although there is no evidence of free intraperitoneal air. These findings were discussed with the nurse practitioner on 02/28/2019 at approximately 1:40 AM central time. 2. Otherwise, unremarkable CT scan of the abdomen and pelvis. Abdomen Ultrasound 02/28/19 15:05 IMPRESSION: No safe window for ultrasound guidance. Patient will be scheduled for CT guided diagnostic paracentesis. Abdomen CT 03/01/19 00:00 IMPRESSION: PREVIOUSLY SEEN FREE FLUID ON THE RIGHT SIDE OF THE ABDOMEN IS NO LONGER PRESENT. THE PLANNED PARACENTESIS WAS CANCELED. Assessment and Plan - Diagnosis (1) Headache Is this a current diagnosis for this admission?: Yes Plan: headache is improving. recommend treating symptomatically (2) Ascites Qualifiers: Ascites type: other type Qualified Code(s): R18.8 - Other ascites Is this a current diagnosis for this admission?: Yes Plan: resolved with repeat CT (3) Fever and other physiologic disturbances of temperature regulation Is this a current diagnosis for this admission?: Yes Plan: most likely due to PID. follow blood cultures. continue clindamycin and ceftriaxone (4) Pelvic inflammatory disease Is this a current diagnosis for this admission?: Yes Plan: continue abx - Plan Summary Plan Summary: discussed with patient and her family including parents at bedside. low suspicion of meningitis since there is no photophobia nor nuchal rigidity. no nausea or vomiting. headache is improving. fever is most likely from PID. continue with current abx. if symptoms worsen or persisted, will do LP. patient and family agree. apparently, the father spoke with his brother in-law who is ER physician and he also recommended the same to the family. Thank you Dr Degroot for the consult. will follow with you.
[2019-03-01] MEDS ORDERED: ACETAMINOPHEN 325 MG TABLET PO PRN (20:08)
[2019-03-02] MEDS: CLINDAMYCIN 900 MG/D5W RTU 900 MG/50 ML RTUPB IV SCH ×3 (05:53→22:48)
[2019-03-02] MEDS: IBUPROFEN 800 MG TABLET PO SCH ×3 (05:53→23:00)
[2019-03-02 09:31] LABS: INHIBIN B 41.8 pg/mL (.)
--- NOTE | 2019-03-02 13:20 | PDOC PROGRESS REPORT ---
Subjective Progress Note for:: 03/02/19 Subjective:: Patient is doing much better. She is afebrile. Headache has resolved. White count normalized. Tolerating diet very well. Reason For Visit: PELVIC MASS WITH INFLAMMATION Physical Exam Vital Signs: Temp Pulse Resp BP Pulse Ox 98.4 F 67 16 125/66 99 03/02/19 11:29 03/02/19 11:29 03/02/19 11:29 03/02/19 11:29 03/02/19 11:29 Intake & Output 03/01/19 03/02/19 03/03/19 06:59 06:59 06:59 Intake Total 3160 2198 820 Output Total 1790 2050 Balance 1370 148 820 Weight 129 lb 6.581 oz 128 lb 15.527 oz Exam: Patient is no acute distress Alert oriented to time place person No anxiety or depression Head: atraumatic normocephalic Pupils: are equal reactive Neck: is supple and trachea is central no lymphadenopathy No pharyngeal erythema or exudates Heart: Regular rate and rhythm Lungs: clear no distress Abdomen: nontender nondistended Neurological exam: unremarkable. no photophobia. no nuchal rigidity. Musculoskeletal: No joint swelling or effusion chronic lower back pain and tenderness No suicidal or homicidal ideation Results Laboratory Results: 03/01/19 18:21 02/27/19 20:08 03/01/19 03/01/19 17:10 18:21 WBC 5.9 RBC 4.10 Hgb 11.4 L Hct 34.2 L MCV 84 MCH 27.7 MCHC 33.2 RDW 17.4 H Plt Count 202 Seg Neutrophils % 83.5 H Lymphocytes % 9.4 L Monocytes % 6.4 Eosinophils % 0.0 Basophils % 0.7 Absolute Neutrophils 4.9 Absolute Lymphocytes 0.6 Absolute Monocytes 0.4 Absolute Eosinophils 0.0 Absolute Basophils 0.0 Urine Color STRAW Urine Appearance CLEAR Urine pH 9.0 Ur Specific [place] 1.005 Urine Protein NEGATIVE Urine Glucose (UA) NEGATIVE Urine Ketones NEGATIVE Urine Blood NEGATIVE Urine Nitrite NEGATIVE Ur Leukocyte Esterase NEGATIVE Urine RBC (Auto) 1 02/28/19 15:10 Catheterized Urine Urine Culture - Final NO GROWTH 2 DAYS Impressions: Transvaginal US 02/27/19 22:01 IMPRESSION: 7.2 cm heterogeneous complex collection-lesion without significant vascularity at the expected left broad ligament. Differential etiologies include phlegmon-pyosalpinx (PID), hemoatoma, endometrioma, and neoplasm. Abdomen/Pelvis CT 02/28/19 01:23 IMPRESSION: 1. Small to moderate amount of ascites with an average Hounsfield measurement of approximately 35. Although findings could be related to ruptured ovarian cyst, other etiologies are not excluded. Bowel perforation is a consideration although there is no evidence of free intraperitoneal air. These findings were discussed with the nurse practitioner on 02/28/2019 at approximately 1:40 AM central time. 2. Otherwise, unremarkable CT scan of the abdomen and pelvis. Abdomen Ultrasound 02/28/19 15:05 IMPRESSION: No safe window for ultrasound guidance. Patient will be scheduled for CT guided diagnostic paracentesis. Abdomen CT 03/01/19 00:00 IMPRESSION: PREVIOUSLY SEEN FREE FLUID ON THE RIGHT SIDE OF THE ABDOMEN IS NO LONGER PRESENT. THE PLANNED PARACENTESIS WAS CANCELED. Assessment and Plan - Diagnosis (1) Headache Is this a current diagnosis for this admission?: Yes Plan: resolved (2) Ascites Qualifiers: Ascites type: other type Qualified Code(s): R18.8 - Other ascites Is this a current diagnosis for this admission?: Yes Plan: resolved on repeat CT (3) Fever and other physiologic disturbances of temperature regulation Is this a current diagnosis for this admission?: Yes Plan: most likely due to PID. follow blood cultures. continue clindamycin and ceftriaxone. resolved (4) Pelvic inflammatory disease Is this a current diagnosis for this admission?: Yes Plan: continue abx - Plan Summary Plan Summary: discussed with patient and her family including parents at bedside. continue current abx. will sign off. Thank you.
[2019-03-02] MEDS: CEFTRIAXONE SODIUM 1,000 MG in DEXTROSE 5%-WATER 50 ML IV SCH ×2 (13:36→22:48)
--- NOTE | 2019-03-02 16:41 | PDOC PROGRESS REPORT ---
Subjective Progress Note for:: 03/02/19 Subjective:: Patient states that she feels much better. Her pain is rated at 5 out of 10. She is only using Motrin. She is ambulating and voiding without difficulty. She is tolerating a regular diet. Patient denies nausea and vomiting. Reason For Visit: PELVIC MASS WITH INFLAMMATION Physical Exam - Physical Exam Vital Signs: Temp Pulse Resp BP Pulse Ox 99.0 F 73 16 123/72 96 03/02/19 15:08 03/02/19 15:08 03/02/19 15:08 03/02/19 15:08 03/02/19 15:08 Intake & Output 03/01/19 03/02/19 03/03/19 06:59 06:59 06:59 Intake Total 3160 2248 1120 Output Total 1790 2050 Balance 2855 711 1722 Weight 58.7 kg 58.5 kg General appearance: PRESENT: no acute distress Cardiovascular exam: PRESENT: RRR GI/Abdominal exam: PRESENT: normal bowel sounds, soft Extremities exam: ABSENT: calf tenderness, clubbing, full ROM, joint swelling, pedal edema, tenderness, +1 edema, +2 edema, other Result Laboratory Results: 03/01/19 18:21 02/27/19 20:08 03/01/19 03/01/19 17:10 18:21 WBC 5.9 RBC 4.10 Hgb 11.4 L Hct 34.2 L MCV 84 MCH 27.7 MCHC 33.2 RDW 17.4 H Plt Count 202 Seg Neutrophils % 83.5 H Lymphocytes % 9.4 L Monocytes % 6.4 Eosinophils % 0.0 Basophils % 0.7 Absolute Neutrophils 4.9 Absolute Lymphocytes 0.6 Absolute Monocytes 0.4 Absolute Eosinophils 0.0 Absolute Basophils 0.0 Urine Color STRAW Urine Appearance CLEAR Urine pH 9.0 Ur Specific [place] 1.005 Urine Protein NEGATIVE Urine Glucose (UA) NEGATIVE Urine Ketones NEGATIVE Urine Blood NEGATIVE Urine Nitrite NEGATIVE Ur Leukocyte Esterase NEGATIVE Urine RBC (Auto) 1 02/28/19 15:10 Catheterized Urine Urine Culture - Final NO GROWTH 2 DAYS Impressions: Transvaginal US 02/27/19 22:01 IMPRESSION: 7.2 cm heterogeneous complex collection-lesion without significant vascularity at the expected left broad ligament. Differential etiologies include phlegmon-pyosalpinx (PID), hemoatoma, endometrioma, and neoplasm. Abdomen/Pelvis CT 02/28/19 01:23 IMPRESSION: 1. Small to moderate amount of ascites with an average Hounsfield measurement of approximately 35. Although findings could be related to ruptured ovarian cyst, other etiologies are not excluded. Bowel perforation is a consideration although there is no evidence of free intraperitoneal air. These findings were discussed with the nurse practitioner on 02/28/2019 at approximately 1:40 AM central time. 2. Otherwise, unremarkable CT scan of the abdomen and pelvis. Abdomen Ultrasound 02/28/19 15:05 IMPRESSION: No safe window for ultrasound guidance. Patient will be scheduled for CT guided diagnostic paracentesis. Abdomen CT 03/01/19 00:00 IMPRESSION: PREVIOUSLY SEEN FREE FLUID ON THE RIGHT SIDE OF THE ABDOMEN IS NO LONGER PRESENT. THE PLANNED PARACENTESIS WAS CANCELED. Assessment & Plan - Diagnosis (1) Ascites Qualifiers: Ascites type: other type Qualified Code(s): R18.8 - Other ascites Is this a current diagnosis for this admission?: Yes (2) Fever and other physiologic disturbances of temperature regulation Is this a current diagnosis for this admission?: Yes (3) Headache Is this a current diagnosis for this admission?: Yes (4) Pelvic inflammatory disease Is this a current diagnosis for this admission?: Yes (5) Urinary retention Is this a current diagnosis for this admission?: Yes - Time Time Spent with patient: 15-24 minutes - Plan Summary Plan Summary: 1. Continue current care 2. Await blood cultures
[2019-03-03] MEDS: IBUPROFEN 800 MG TABLET PO SCH (05:24)
[2019-03-03] MEDS: CLINDAMYCIN 900 MG/D5W RTU 900 MG/50 ML RTUPB IV SCH (05:26)
--- NOTE | 2019-03-03 08:54 | PDOC DISCHARGE SUMMARY ---
General - Admit/Disc Date/PCP Admission Date/Primary Care Provider: 02/28/19 05:48 Discharge Date: 03/03/19 - Discharge Diagnosis (1) Ascites Is this a current diagnosis for this admission?: Yes (2) Fever and other physiologic disturbances of temperature regulation Is this a current diagnosis for this admission?: Yes (3) Pelvic inflammatory disease Is this a current diagnosis for this admission?: Yes (4) Urinary retention Is this a current diagnosis for this admission?: Yes - Additional Information Resuscitation Status: Full Code Discharge Diet: As Tolerated Discharge Activity: Activity As Tolerated Home Medications: No Home Medications 02/28/19 History of Present Illness History of Present Illness: KENNY DONG is a 18 year old female Hospital Course Hospital Course: pt admitted with elevated WBC and found to have ascites of unknow origin. pt now has 5.9 wbs and resolved ascites. pt is d/alvarez on antibiotics and will f/u with her PCM. Physical Exam - Physical Exam Vital Signs: Temp Pulse Resp BP Pulse Ox 97.5 F 50 L 16 123/64 96 03/03/19 03:51 03/03/19 03:51 03/02/19 19:37 03/03/19 03:51 03/03/19 03:51 Intake & Output 03/02/19 03/03/19 03/04/19 06:59 06:59 06:59 Intake Total 2298 1720 Output Total 2050 Balance 248 1720 Weight 58.5 kg 58.2 kg General appearance: PRESENT: no acute distress GI/Abdominal exam: PRESENT: soft Result Laboratory Results: 03/01/19 18:21 02/27/19 20:08 02/28/19 15:10 Catheterized Urine Urine Culture - Final NO GROWTH 2 DAYS Impressions: Transvaginal US 02/27/19 22:01 IMPRESSION: 7.2 cm heterogeneous complex collection-lesion without significant vascularity at the expected left broad ligament. Differential etiologies include phlegmon-pyosalpinx (PID), hemoatoma, endometrioma, and neoplasm. Abdomen/Pelvis CT 02/28/19 01:23 IMPRESSION: 1. Small to moderate amount of ascites with an average Hounsfield measurement of approximately 35. Although findings could be related to ruptured ovarian cyst, other etiologies are not excluded. Bowel perforation is a consideration although there is no evidence of free intraperitoneal air. These findings were discussed with the nurse practitioner on 02/28/2019 at approximately 1:40 AM central time. 2. Otherwise, unremarkable CT scan of the abdomen and pelvis. Abdomen Ultrasound 02/28/19 15:05 IMPRESSION: No safe window for ultrasound guidance. Patient will be scheduled for CT guided diagnostic paracentesis. Abdomen CT 03/01/19 00:00 IMPRESSION: PREVIOUSLY SEEN FREE FLUID ON THE RIGHT SIDE OF THE ABDOMEN IS NO LONGER PRESENT. THE PLANNED PARACENTESIS WAS CANCELED. Plan Discharge Plan: dc f/u with her pcm Acute Heart Failure Is this a Heart Failure Patient?: No Follow-up Appointment scheduled within 7 days?: No, document reason - pt to return to [place] and will see her PCM
[2019-03-03 09:14] VITALS: BP 132/73
== END 2019-03-03 10:20 | disposition home or self-care (01) | DRG 948 ==
LOC: ER 19:20 → EH 02-28 05:48 → 2N 02-28 06:33
PROVIDERS: ADMIT Obstetrics & Gynecology Gynecology; ATTEND Obstetrics & Gynecology Gynecology
DX: R18.8 Other ascites (principal); N73.9 Female pelvic inflammatory disease, unspecified; R10.9 Unspecified abdominal pain; R33.9 Retention of urine, unspecified; R51 Headache
CPT/HCPCS: 36415; 74150; 74177; 76705; 76830; 80053; 81001; 81025; 82378; 83520; 83615; 84702; 85025; 86304; 86336; 87040; 87086; 87210; 87491; 87591; 93976; 99285; J0696; J1885; J2270; J2550; J3010; J3490; J7060; J7121